=== PATIENT | female | born 1990 | race Caucasian/White ===

== ENCOUNTER 2022-02-16 11:36 | Outpatient (CLI) | payer BC, SELFPAY ==
[2022-02-16 15:45] LABS: Chlamydia DNA Amplified* NOT DETECTED (No Detected); GC DNA Amplified* NOT DETECTED (No Detected)
== END 2022-02-16 11:37 | disposition home or self-care (01) ==
PROVIDERS: PCP Family Medicine; Visit Provider Student in an Organized Health Care Education/Training Program
DX: R10.9 Unspecified abdominal pain (principal)
CPT/HCPCS: 87491; 87591

== ENCOUNTER 2023-08-24 19:03 | Emergency (ER) | payer BC, SELFPAY ==
[2023-08-24 19:21] VITALS: BP 118/80; PULSE 91; RESP 18; TEMP 36.8; O2SAT 97; BMI 29.3
--- NOTE | 2023-08-24 19:54 | ED_ITS ---
HPI - Nausea/Vomiting/Diarrhea General Chief complaint: Diarrhea Stated complaint: Diarrhea/stomach pain, painful rear Time Seen by Provider: 08/24/23 19:19 History of Present Illness HPI Narrative: This 32-year-old female comes in reporting recurrent diarrhea with crampy abdominal pain over the past couple days. She does not report any blood in the toilet. She has not had any fevers. She states that she has been drinking fluids as well as she can. She also use Imodium without much relief. She does report pain in her perineum due to recurrent diarrhea. Currently she is not having any pain. Related Data Previous Rx's Medication Instructions Recorded diphenoxylate-atropine 2.5 1 tab PO DAILY #10 tabs 08/24/23 mg-0.025 mg tablet (Lomotil) Allergies Allergy/AdvReac Type Severity Reaction Status Date / Time No Known Drug Allergies Allergy Verified 02/16/22 11:21 Review of Systems Status of ROS: Reports: 10 or more systems reviewed and unremarkable except as noted in History and below Narrative: Constitutional: No fevers, no weight gain or loss. Eyes: No discharge. No vision changes. HENT: No congestion, no sore throat, no ear pain. Cardiovascular: No chest pain, no palpitations. Respiratory: No shortness of breath, no wheezes, no cough. Gastrointestinal: She did vomit twice 2 days ago and then diarrhea started yesterday. She has crampy abdominal pain. Genitourinary: No dysuria, no hematuria. Musculoskeletal: Normal range of motion. Skin: No rashes, no pruritis. Neurological: No dizziness, weakness, sensory change, speech change. Endo/Heme/Allergies: No bruising or bleeding. No polydipsia. Pysch: no suicidality, no anxiety, no insomnia. All other systems reviewed and are negative. PFSH PFS Social History Smoking Status: Never smoker How often do you have a drink containing alcohol: monthly or less AUDIT-C Alcohol total score: 1 Non-prescribed substance use: denies use Exam Narrative: Exam Narrative: Constitutional: Well-developed, well-nourished, no acute distress. HEENT: Normocephalic, atraumatic. Neck: Normal range of motion. Nontender. Supple. Heart: Regular. No murmurs. Normal rate. Intact distal pulses. Lungs: Clear to auscultation. No chest discomfort. No wheezes, rhonchi, or rales. Abdomen: Normal bowel sounds. Nontender. No rebound tenderness. Genitalia: Deferred. Back: No midline tenderness. Normal range of motion. Extremities: Normal range of motion. No injury. Skin: Intact. No rash. Warm. No erythema or pallor. Neurologic: No altered sensation. No weakness. Alert and oriented. Psychiatric: No suicidality. No anxiety or depression. No insomnia. Nursing notes and vitals signs are reviewed. Const: Vital Signs, click to edit/add: Vital Signs - 24 hr 08/24/23 19:21 Temperature 98.2 F Pulse Rate [Pulse Oximeter] 91 Respiratory Rate 18 Blood Pressure [Ri ght Upper Arm] 118/80 Pulse Oximetry 97 Oxygen Delivery Me thod Room Air Course Vital Signs Vital signs: Initial Vital Signs Temperature 98.2 F 08/24/23 19:21 Temperature Source Temporal Artery Scan 08/24/23 19:21 Pulse Rate 91 08/24/23 19:21 Respiratory Rate 18 08/24/23 19:21 Blood Pressure 118/80 08/24/23 19:21 Blood Pressure Mean 92 08/24/23 19:21 Blood Pressure Position Sitting 08/24/23 19:21 Pulse Oximetry 97 08/24/23 19:21 Oxygen Delivery Method Room Air 08/24/23 19:21 Vital Signs Temperature 98.2 F 08/24/23 19:21 Pulse Rate 91 08/24/23 19:21 Respiratory Rate 18 08/24/23 19:21 Blood Pressure 118/80 08/24/23 19:21 Pulse Oximetry 97 08/24/23 19:21 Oxygen Delivery Method Room Air 08/24/23 19:21 Temperature 98.2 F 08/24/23 19:21 Pulse Rate 91 08/24/23 19:21 Respiratory Rate 18 08/24/23 19:21 Blood Pressure 118/80 08/24/23 19:21 Pulse Oximetry 97 08/24/23 19:21 Oxygen Delivery Method Room Air 08/24/23 19:21 Medications Administered Medications: Generic Name Dose Route Start Last Admin Trade Name Freq PRN Reason Stop Dose Admin Sodium Chloride 1,000 mls @ 1,000 mls/hr 08/24/23 20:00 08/24/23 20:40 0.9 % Sodium Chloride 1000 Ml IV 08/24/23 20:59 Infused .Q1H ZAIRE Infusion MDM - Nausea/Vomiting/Diarrhea MDM Narrative Medical decision making narrative: This patient comes in reporting diarrhea over the past couple days. An IV was established where she did receive a L of normal saline. Labs are acquired and these returned with reassuring findings. Her potassium was just slightly low. The patient states that she is feeling better. She is okay to be discharged home. I did provide prescription for a few tablets of Lomotil if Imodium is not helping with diarrhea. She also received a prescription for Toradol to help with crampy abdominal pains. Lab Data Labs: Lab Results 08/24/23 Range/Units 20:00 WBC 5.15 (4.50-11.00) K/uL RBC 5.02 (4.00-5.20) m/uL Hgb 14.0 (12.0-16.0) gm/dL Hct 41.9 (33.0-51.0) % MCV 84 (80-100) fL MCH 28 (26-34) pg MCHC 33 (32-36) gm/dL RDW Coeff of Janay 12.3 (11.5-15.5) % Plt Count 257 (140-440) K/uL Neut % (Auto) 60.4 (42.0-72.0) % Lymph % (Auto) 25.8 (20-44) % [place] % (Auto) 12.2 H (0.0-11.0) % Eos % (Auto) 1.4 (0.0-7.0) % Baso % (Auto) 0.0 (0.0-3.0) % Neut # (Auto) 3.11 (1.7-7.0) K/uL Lymph # (Auto) 1.33 (0.90-2.90) K/uL [place] # (Auto) 0.60 (0.00-0.90) K/UL Eos # (Auto) 0.07 (0.00-0.50) K/uL Baso # (Auto) 0.00 (0.00-0.30) K/uL Abs Immat Gran (auto) 0.01 (0.00-0.30) K/uL Imm/Tot Granulo (auto) 0.2 % Sodium 138 (135-149) mmol/L Potassium 3.2 L (3.6-5.1) mmol/L Chloride 108 (96-114) mmol/L Carbon Dioxide 24 (20-32) mmol/L Anion Gap 6 L (7-15) mEq/L BUN 12 (5-24) mg/dL Creatinine 0.5 (0.5-1.5) mg/dL Estimated Creat Clear 127.76 Estimated GFR 128 ml/min Glucose 95 (60-115) mg/dL Calcium 9.3 (8.4-10.6) mg/dL Discharge Plan Discharge Clinical Impression: Gastroenteritis Patient Disposition: Home, Self-Care Condition: Stable Additional Instructions: Take medications as needed and directed. Increase diet as tolerated. Follow up with MD return if worsening. Prescriptions: New diphenoxylate-atropine [Lomotil] 2.5-0.025 mg tablet 1 tab PO DAILY Qty: 10 0RF Follow Up/Referrals: Gracia Jimenez MD [Primary Care Provider] - Stand Alone Forms: [employer] Info Instructions
[2023-08-24] MEDS: 0.9 % SODIUM CHLORIDE 1000 ml 1,000 ML IV (19:55)
[2023-08-24 20:09] LABS: Eosinophils Absolute Auto 0.07 K/uL (0.00-0.50); Eosinophils Percent Auto 1.4 % (0.0-7.0); Hematocrit 41.9 % (33.0-51.0); Immature Granulocytes Abs Auto 0.01 K/uL (0.00-0.30); Immature Granulocytes Pct Auto 0.2 %; Lymphocytes Absolute Auto 1.33 K/uL (0.90-2.90); Lymphocytes Percent Auto 25.8 % (20-44); Mean Corpuscular HGB Conc 33 gm/dL (32-36); Mean Corpuscular Hemoglobin 28 pg (26-34); Mean Corpuscular Volume 84 fL (80-100); Monocytes Percent Auto 12.2 % (0.0-11.0); Neutrophils Absolute Auto 3.11 K/uL (1.7-7.0); Neutrophils Percent Auto 60.4 % (42.0-72.0); Platelet Count* 257 K/uL (140-440); RDW Coefficient of Variation % 12.3 % (11.5-15.5); Red Blood Count 5.02 m/uL (4.00-5.20); Slide Review Reflex No; White Blood Count* 5.15 K/uL (4.50-11.00)
[2023-08-24 20:19] LABS: Chloride* 108 mmol/L (96-114); Potassium* 3.2 mmol/L (3.6-5.1); Sodium* 138 mmol/L (135-149)
[2023-08-24 20:22] LABS: Anion Gap 6 mEq/L (7-15); Blood Urea Nitrogen* 12 mg/dL (5-24); Carbon Dioxide* 24 mmol/L (20-32); Creatinine* 0.5 mg/dL (0.5-1.5); Est. Creatinine Clearance* 127.76; Estimated Glomerular Filt Rate 128 ml/min
[2023-08-24 20:23] LABS: Calcium* 9.3 mg/dL (8.4-10.6); Glucose* 95 mg/dL (60-115)
[2023-08-24 20:54] VITALS: BP 121/79; PULSE 84; RESP 18; TEMP 36.8; O2SAT 97
[2023-08-24 20:55] VITALS: BP 121/79; PULSE 84; RESP 18; TEMP 36.8
== END 2023-08-24 20:56 | disposition home or self-care (01) ==
PROVIDERS: Emergency Provider Emergency Medicine Emergency Medical Services; PCP Family Medicine
DX: K52.9 Noninfective gastroenteritis and colitis, unspecified (principal)
CPT/HCPCS: 36415; 80048; 85025; 99283; 99284; J7030